=== PATIENT | female | born 1970 | race Caucasian/White ===

== ENCOUNTER 2022-08-20 07:50 | Emergency (ER) | payer OTHER ==
[2022-08-20 08:04] VITALS: RESP 18; BMI 28.1
[2022-08-20] MEDS ORDERED: TETANUS AND DIPHTHERIA TOXOID 0.5 ML DISP.SYRIN IM ONE (09:27)
[2022-08-20] MEDS ORDERED: DIPHTH,PERTUSS(ACELL),TET 0.5 ML DISP.SYRIN IM ONE (09:36)
[2022-08-20 11:07] VITALS: BP 110/66; PULSE 68; TEMP 97.3
== END 2022-08-20 13:05 | disposition short-term general hospital (02) ==
LOC: JER 07:50
PROC: 3E0234Z Introduction of Serum, Toxoid and Vaccine into Muscle, Percutaneous Approach (ICD-10-PCS; principal; 2022-08-20)
DX: S61.012A Laceration without foreign body of left thumb without damage to nail, initial encounter (principal); W26.0XXA Contact with knife, initial encounter; Z20.822 Contact with and (suspected) exposure to COVID-19
CPT/HCPCS: 87635; 99285-25

== ENCOUNTER 2023-02-14 08:13 | Emergency (ER) | payer OTHER ==
[2023-02-14 08:42] VITALS: BP 114/61; PULSE 78; RESP 17; TEMP 98.2; BMI 30.9
[2023-02-14] MEDS ORDERED: LIDOCAINE 4% PATCH TP ONE ×2 (09:03→09:08)
[2023-02-14] MEDS ORDERED: KETOROLAC TROMETHAMINE 30 MG/1 ML VIAL IM ONE (09:03)
[2023-02-14] MEDS ORDERED: METHOCARBAMOL 500 MG TABLET PO ONE (09:03)
[2023-02-14] MEDS ORDERED: METHOCARBAMOL 500 MG TABLET ONE (09:08)
[2023-02-14] MEDS ORDERED: KETOROLAC TROMETHAMINE 30 MG/1 ML VIAL ONE (09:08)
== END 2023-02-14 10:01 | disposition home or self-care (01) ==
LOC: JERFT 08:13 → JER 08:13 → JERFT 10:01
PROC: 3E0233Z Introduction of Anti-inflammatory into Muscle, Percutaneous Approach (ICD-10-PCS; principal; 2023-02-14)
DX: M25.512 Pain in left shoulder (principal); S46.912A Strain of unspecified muscle, fascia and tendon at shoulder and upper arm level, left arm, initial encounter; X58.XXXA Exposure to other specified factors, initial encounter
CPT/HCPCS: 73030-TC-LT-FY; 99284-25